=== PATIENT | female | born 1960 | race Caucasian/White ===

== ENCOUNTER 2021-01-09 10:15 | Day surgery (SDC) | payer OTHER, SELFPAY ==
[2021-01-06 10:43] LABS: BASOPHILS % (AUTO) 0.3 % (0.0-2.0); EOSINOPHILS # (AUTO) 0.1 K/uL (0.0-0.4); EOSINOPHILS % (AUTO) 2.6 % (0.0-4.0); LYMPHOCYTES # (AUTO) 2.1 K/uL (1.0-5.5); LYMPHOCYTES % (AUTO) 35.8 % (20.5-51.5); MEAN CORPUSCULAR HEMOGLOBIN 31 pg (27-31); MEAN CORPUSCULAR HGB CONC 34 % (32-36); MEAN CORPUSCULAR VOLUME 92 fL (79.0-98.0); MONOCYTES # (AUTO) 0.4 K/uL (0.0-1.0); MONOCYTES % (AUTO) 7.1 % (1.7-9.3); NEUTROPHILS # (AUTO) 3.2 K/uL (1.8-7.7); NEUTROPHILS % (AUTO) 54.2 % (40.0-70.0); PLATELET COUNT (AUTO) 206 K/uL (130-430); RED BLOOD CELL COUNT(AUTO) 4.44 MIL/uL (4.2-6.2); RED CELL DISTRIBUTION WIDTH 13.2 % (9.0-15.0); WHITE BLOOD COUNT (AUTO) 5.8 K/uL (4.8-10.8)
[2021-01-06 10:52] LABS: BILIRUBIN,URINE NEGATIVE (NEGATIVE); BLOOD, URINE 1+ (NEGATIVE); CLARITY/URINE CLEAR (CLEAR); COLOR,URINE YELLOW (YELLOW); GLUCOSE,URINE NEGATIVE (NEGATIVE); INR 0.9 (0.8-1.2); KETONES,URINE NEGATIVE (NEGATIVE); LEUKOCYTE ESTERASE ,URINE NEGATIVE (NEGATIVE); NITRITE, URINE NEGATIVE (NEGATIVE); PH,URINE 6.5 (5.0-8.0); PROTEIN URINE NEGATIVE (NEGATIVE); PROTHROMBIN TIME 9.7 SECS (9.5-12.5); UROBILINOGEN,URINE 0.2 (0.2-1.0)
[2021-01-06 10:59] LABS: CALCIUM 8.8 mg/dL (8.4-11.0); CREATININE 0.73 mg/dL (0.55-1.30); POTASSIUM 4.4 mmol/L (3.5-5.1)
[2021-01-06 11:02] LABS: BACTERIA,URINE FEW /HPF (None Seen); MUCUS,URINE 1+ /LPF (None Seen); WBC,URINE 0-3 /HPF (0-3)
[~2021-01-09] VITALS: Ht 162.6 cm; Wt 79.4 kg
[~2021-01-09 10:15] MED LIST: DICL100G19; HYDR-3927; LORA1TAB; MELO15TA13; METH-799; TEMA30CA
[2021-01-09] MEDS ORDERED: SEVOFLURANE 15 MIN GAS INH ONE (11:30)
[2021-01-09] MEDS ORDERED: fentaNYL CITRATE/PF 100 MCG/2 ML AMP IVP ONE (11:30)
[2021-01-09] MEDS ORDERED: ONDANSETRON HCL 4 MG/2 ML VIAL IVP ONE (11:30)
[2021-01-09] MEDS ORDERED: PROPOFOL 200MG/ 20ML VIAL (DIPRIVAN) IV ONE (11:30)
[2021-01-09] MEDS ORDERED: LR 1,000 ML IV.SOLN IV ONE (11:30)
[2021-01-09] MEDS ORDERED: NS IRRIG SOLN 1000 ML IR ONE (11:30)
[2021-01-09] MEDS ORDERED: NS 1000 ML IV.SOLN IV ONE (11:30)
[2021-01-09] MEDS ORDERED: DEXAMETHASONE SOD PHOSPHATE 4 MG/ML VIAL IVP ONE (11:30)
[2021-01-09] MEDS ORDERED: MIDAZOLAM HCL 5 MG/5 ML VIAL IVP ONE (11:30)
[2021-01-09] MEDS ORDERED: BUPIVACAINE /EPINEPHRINE/PF 0.25% 30 ML VIAL INJ ONE (11:30)
[2021-01-09] MEDS ORDERED: MEPERIDINE HCL/PF 25 MG/ML DISP.SYRIN IVP PRN (12:00)
[2021-01-09] MEDS ORDERED: METOCLOPRAMIDE HCL 10 MG/2 ML VIAL IVP PRN (12:00)
[2021-01-09] MEDS ORDERED: LR 1,000 ML IV SCH (12:00)
[2021-01-09] MEDS ORDERED: ONDANSETRON HCL 4 MG/2 ML VIAL IVP PRN (12:00)
[2021-01-09] MEDS ORDERED: MIDAZOLAM HCL 2 MG/2 ML VIAL (VERSED) IVP PRN (12:00)
[2021-01-09] MEDS ORDERED: HYDROmorphone 1 MG/ML INJ. CARTRIDGE IVP PRN ×2 (12:00)
[2021-01-09] MEDS ORDERED: HYDROcodone/ACETAMIN 10-325 MG TAB ONE (13:23)
[2021-01-09] MEDS ORDERED: HYDROcodone/ACETAMIN 10-325 MG TAB PO ONE (13:30)
[2021-01-09 14:30] VITALS: BP_SYST 99
== END 2021-01-09 14:10 | disposition home or self-care (01) ==
LOC: SDS 10:15 → SMU 10:15 → SDS 14:10
PROVIDERS: ATTEND Orthopaedic Surgery
DX: G56.01 Carpal tunnel syndrome, right upper limb (principal); Z20.822 Contact with and (suspected) exposure to COVID-19; Z79.01 Long term (current) use of anticoagulants; Z79.899 Other long term (current) drug therapy
CPT/HCPCS: 36415; 64721; 71046; 80048; 81000; 85025; 85610; 85730; 87086; 93005; J1100; J2250; J2405; J2704; J3010; J3465; J3490; J7030; J7120; U0003